=== PATIENT | male | born 1930 | race Caucasian/White ===

== ENCOUNTER 2016-11-26 21:11 | Observation (INO) | payer MEDICARE ==
--- NOTE | ~2016-11-26 | DS ---
Discharge Summary [facility] [address] [place]. [address] NAME: MANJINDER SHAFFER : 32 STATUS : DIS Costa PAT#: [id number] AGE: 86 ADM/REG DATE : 11/26/16 MR#: [id number] REPORT SERV DATE: 11/28/16 DICTATED BY: MACI MAYORGA DATE: 11/27/16 REPORT STATUS : Draft TRANSCRIBED BY: MODL DATE: 11/27/16 ADMISSION DATE: 11/26/2016 DISCHARGE DATE: 11/27/2016 DISCHARGE DIAGNOSES: 1. Profound hypokalemia associated with diuretic use. 2. Ventricular arrhythmias. 3. Hypertension. 4. Chronic atrial fibrillation. 5. Eliquis. 6. BPH. 7. Hyperlipidemia. OPERATIONS AND PROCEDURES: None. PRESENT ILLNESS: This is an 86-year-old white male who was admitted by Dr. Bunn with a potassium of 2.2 as described on admission history and physical examination. He had been on both chlorthalidone and Bumex by his home medication list. The former had provided improved control of his blood pressure. His indicated that his potassiums have been chronically low on reports he received of his laboratory studies in the mail. ADDITIONAL HISTORY: Per Dr. Bunn. PHYSICAL EXAMINATION: Per Dr. Bunn. ADMISSION LABORATORY: Per Dr. Bunn. HOSPITAL COURSE: He was placed in observation on -. He was given potassium replacement per protocol. His potassium increased through his observation period from 2.2 to 3 to 3.2 and was 3.8 at 1904 hours on 11/27/2016. He was seen by the undersigned at 1545 hours and 1952 hours. He had no new symptoms. He felt well. He thought he could manage at home. He is being discharged home to be seen by Dr. Guerrero in 48 hours on the following medications: Eliquis 5 mg twice daily, Coreg 25 mg twice daily, Avodart 0.5 mg daily (new prescription from Dr. Guerrero), Pravachol 40 mg daily, Flomax 0.8 mg daily (new prescription from Dr. Guerrero), and Remeron 15 mg at bedtime (new prescription from Dr. Guerrero). He is not to use Bumex, chlorthalidone, or Hytrin. He is being given a prescription for Aldactone 25 mg daily for his blood pressure, fluid retention, and hypokalemia. DD/MODL Discharge Summary [place] [id number] [address] NAME: MANJINDER SHAFFER : 32 STATUS : DIS [place] PAT#: [id number] AGE: 86 ADM/REG DATE : 11/26/16 MR#: [id number] REPORT SERV DATE: 11/28/16 DICTATED BY: MACI MAYORGA DATE: 11/27/16 REPORT STATUS : Draft TRANSCRIBED BY: GORAN DATE: 11/27/16 Maci Mayorga M.D. / [id number] CC: Shilpa Helton M.D. William Blalock III, M.D., F.A.C.C.
--- NOTE | ~2016-11-26 | HP ---
History And Physical [place] [id number] [facility] [place]. [address] NAME: MANJINDER SHAFFER : 32 STATUS : ADM [place] PAT#: [id number] AGE: 86 ADM/REG DATE : 11/26/16 MR#: [id number] REPORT SERV DATE: 11/26/16 DICTATED BY: DAISHA CUMMINS DATE: 11/26/16 REPORT STATUS : Draft TRANSCRIBED BY: MODL DATE: 11/26/16 DATE OF ADMISSION: 11/26/2016 CHIEF COMPLAINT: Sent by PCP for hypokalemia. HISTORY OF PRESENT ILLNESS: The patient is an 86-year-old male. He has a past medical history significant for hypertension and atrial fibrillation. He has recently seen his PCP. He had routine labs done. He was called at home today, informed his potassium was low at 2.4. He was recommended to go to the emergency department. On evaluation here, his potassium was 2.2. The patient states that several months ago, he was placed on, he believes a diuretic or water pill. He does not recall the name. He states he has had no problems. In fact, it worked very well for his blood pressure and his edema. He actually had his appointment with Dr. Guerrero and had several of his antihypertensive changed because his blood pressure was looking so well. He would like to continue the diuretic. He states he has had some very minor low potassiums in the past, has never required a supplement. He is currently not having any symptoms of hypokalemia. He is not having palpitations, pain, or cramping. He does not report any other reason besides the diuretic, his potassium might be low. He has not had change in diet, any other changes in his medications besides his fluid pill. He has had no diarrhea, nausea, vomiting, etc. PAST MEDICAL HISTORY: As covered above. PAST SURGICAL HISTORY: Hernia repair and remote cholecystectomy. CURRENT MEDICATIONS: His list is pending. ALLERGIES: NO KNOWN DRUG ALLERGIES. FAMILY HISTORY: His father had pancreatitis, of pancreatitis. His mother when he was 9. He is uncertain as for her medical history. SOCIAL HISTORY: He is a nondrinker and nonsmoker. REVIEW OF SYSTEMS: HEENT: No complaints. CARDIOVASCULAR: No chest pain or palpitations. PULMONARY: No shortness of breath. No nausea or vomiting. No diarrhea. Review of systems is negative. PHYSICAL EXAMINATION: VITAL SIGNS: BP 140/59, temp 97, pulse 103, respirations 16, sat 99%. GENERAL: He is awake, alert, oriented, in no acute distress. HEENT: Normocephalic, atraumatic. Sclerae nonicteric. NECK: Supple. HEART: Irregular, rate controlled. History And Physical [address] [address] NAME: MANJINDER SHAFFER : 32 STATUS : ADM [place] PAT#: [id number] AGE: 86 ADM/REG DATE : 11/26/16 MR#: [id number] REPORT SERV DATE: 11/26/16 DICTATED BY: DAISHA CUMMINS DATE: 11/26/16 REPORT STATUS : Draft TRANSCRIBED BY: GORAN DATE: 11/26/16 LUNGS: Clear to auscultation without rhonchi, rales, or wheezes. ABDOMEN: Nontender, nondistended. EXTREMITIES: No significant edema this evening. LABORATORY DATA: EKG shows atrial fibrillation, PVCs, incomplete right bundle branch block, nonspecific ST changes. Nothing to suggest acute ischemia. Sodium 135, potassium 2.2, chloride 90, CO2 of 33, BUN and creatinine 18 and 1.15. Glucose 182. White count 7.6, H and H are 14.4 and 40, platelets 200. Troponin is less than 0.02 and magnesium is 2. ASSESSMENT: 1. Hypokalemia, suspect secondary to potential diuretic. 2. Hyperglycemia. The patient was actually eating dinner when he received the phone call. 3. Atrial fibrillation, rate controlled. PLAN: The patient has been admitted. We will replace per electrolyte protocol, serial labs and adjust as necessary. We will clarify his home medication list with his [facility]. The patient states Dr. Guerrero made several changes at his last appointment, so we will need to get those changes also. TLF/KATHRYNL Daisha Cummins M.D. / [id number] CC: Nghia Guerrero M.D.
[2016-11-26 18:26] LABS: A/G RATIO 1.5 (0.7-1.9); ALBUMIN 3.8 G/DL (3.5-5.0); ALKALINE PHOSPHATASE 67 U/L (45-117); CALCIUM, SERUM 9.5 MG/DL (8.5-10.4); CHLORIDE, SERUM 94 MMOL/L (96-112); CHOL/HDL RATIO(NOT ORDER) 3.3 (0-5); CHOLESTEROL 117 MG/DL (< 200); CREATININE 1.02 MG/DL (0.70-1.30); GFR AFRICAN AMERICAN 77 ML/MIN (>=60); GFR NON AFRICAN AMERICAN 67 ML/MIN (>=60); GLOBULIN 2.5 G/DL (2.5-4.1); GLUCOSE, SERUM 122 MG/DL (60-99); HDL CHOLESTEROL 35 MG/DL (> 39); NON-HDL CHOLESTEROL 82 MG/DL (< 160); SGOT(AST) 17 U/L (5-40); SGPT(ALT) 17 U/L (5-65); SODIUM, SERUM 138 MMOL/L (135-148); TOTAL BILIRUBIN 1.2 MG/DL (0-1.2); TOTAL PROTEIN 6.3 G/DL (6.0-8.5)
[2016-11-26 18:44] LABS: BUN (BLOOD UREA NITROGEN) 15 MG/DL (6-23); CO2 (CARBON DIOXIDE) 35 MMOL/L (24-34); LDL CHOLESTEROL 40 MG/DL (< 130); POTASSIUM, SERUM 2.4 MMOL/L (3.5-5.3); PROSTATIC SPECIFIC AG 3.07 NG/ML (0.0-6.5); TRIGLYCERIDE 213 MG/DL (< 150)
[2016-11-26 21:00] LABS: BASOPHILS 0.3 %; BASOPHILS ABSOLUTE 0.02 10/3/uL (0.0-0.16); EOSINOPHILS 1.7 %; EOSINOPHILS ABSOLUTE 0.13 10/3/uL (0.0-0.53); ER CBC TAT 0 Hrs 10 Mins; HEMOGLOBIN 14.4 g/dL (13.6-17.8); IMMATURE GRANULOCYTES 0.3 %; IMMATURE GRANULOCYTES ABSOLUTE 0.02 10/3/uL (0.0-0.11); LYMPHOCYTES 29.3 %; LYMPHOCYTES ABSOLUTE 2.21 10/3/uL (0.67-4.30); MANUAL DIFF NO %; MEAN CORPUSCULAR HEMOGLOB 32.3 pg (26.0-34.0); MEAN CORPUSCULAR VOLUME 89.7 fL (80-100); MEAN PLATELET VOLUME 8.6 fL (9.2-13.0); MONOCYTES 4.9 %; MONOCYTES ABSOLUTE 0.37 10/3/uL (0.21-1.20); NEUTROPHILS 63.5 %; PLATELET COUNT 200 10/3/uL (150-400); RBC DISTRIBUTION WIDTH 12.8 % (12.0-16.0); RED CELL COUNT 4.46 10/6/uL (4.7-6.1); WHITE BLOOD CELLS 7.6 10/3/uL (4.5-10.5)
[2016-11-26 21:04] LABS: INTERNATIONAL NORMAL RATI 1.4 UNITS (-); PARTIAL THROMBO TIME 35.9 SEC (22.5-37.2); PROTIME (NOT ORD) 16.9 SEC (12.0-14.5)
[2016-11-26 21:13] LABS: BUN (BLOOD UREA NITROGEN) 18 MG/DL (6-23); CALCIUM, SERUM 9.9 MG/DL (8.5-10.4); CHEST PAIN PROFILE TAT 0 Hrs 23 Mins; CHLORIDE, SERUM 90 MMOL/L (96-112); CO2 (CARBON DIOXIDE) 33 MMOL/L (24-34); CREATININE 1.15 MG/DL (0.70-1.30); GFR AFRICAN AMERICAN 67 ML/MIN (>=60); GFR NON AFRICAN AMERICAN 58 ML/MIN (>=60); GLUCOSE, SERUM 182 MG/DL (60-99); POTASSIUM, SERUM 2.2 MMOL/L (3.5-5.3); SODIUM, SERUM 135 MMOL/L (135-148); TROPONIN I <0.02 NG/ML (<0.05)
[2016-11-26] MEDS ORDERED: ELIQUIS 5 MG TAB5 MG PO (21:25)
[2016-11-26] MEDS ORDERED: FLOMAX4 PO (21:52)
[2016-11-26] MEDS ORDERED: PRAVACHOL40 MG PO (21:52)
[2016-11-26] MEDS ORDERED: AVODART PO (21:53)
[2016-11-26] MEDS ORDERED: COREG25 PO (21:53)
[2016-11-26] MEDS ORDERED: REM15 PO (21:54)
[2016-11-26] MEDS ORDERED: BUM2 PO (21:55)
[2016-11-26] MEDS ORDERED: HYT5 PO (21:56)
[2016-11-27 05:52] LABS: BUN (BLOOD UREA NITROGEN) 16 MG/DL (6-23); CHLORIDE, SERUM 98 MMOL/L (96-112); CO2 (CARBON DIOXIDE) 32 MMOL/L (24-34); GFR AFRICAN AMERICAN 90 ML/MIN (>=60); GFR NON AFRICAN AMERICAN 78 ML/MIN (>=60); SODIUM, SERUM 139 MMOL/L (135-148)
[2016-11-27 06:01] LABS: CALCIUM, SERUM 8.8 MG/DL (8.5-10.4); GLUCOSE, SERUM 110 MG/DL (60-99); POTASSIUM, SERUM 2.2 MMOL/L (3.5-5.3)
[2016-11-27] MEDS ORDERED: SPIRO25 (20:16)
[2016-11-27] MEDS ORDERED: SPIRO25 PO (20:32)
== END 2016-11-27 21:27 | disposition home or self-care (01) ==
LOC: ER 21:11 → CDU1 22:29 → 6NO 22:45
PROVIDERS: Family Medicine; Nurse Practitioner
DX: E87.6 Hypokalemia (principal); I10 Essential (primary) hypertension; I48.2 Chronic atrial fibrillation; E78.5 Hyperlipidemia, unspecified; R73.9 Hyperglycemia, unspecified; N40.0 Benign prostatic hyperplasia without lower urinary tract symptoms; Z79.899 Other long term (current) drug therapy; Z98.890 Other specified postprocedural states; Z90.49 Acquired absence of other specified parts of digestive tract
CPT/HCPCS: 80048; 80053; 80061; 83735 ×2; 84132; 84153; 84443; 84484; 85025; 85610; 85730; 93005; 96365; 96374; 99285; G0378; A9270-GY